=== PATIENT | male | born 1990 | race Caucasian/White ===

== ENCOUNTER 2019-04-21 20:56 | Outpatient (CLI) | payer SELFPAY | END 2019-04-21 20:57 | disposition EMS.NT | LOC: EMS 20:56 | PROVIDERS: ATTEND Surgery | DX: R09.89 Other specified symptoms and signs involving the circulatory and respiratory systems (principal); R20.0 Anesthesia of skin ==

== ENCOUNTER 2019-11-05 12:32 | Day surgery (SDC) | payer OTHER ==
[2019-11-05] MEDS ORDERED: LACTATED RINGERS 1,000 ML IV ONE (12:37)
[2019-11-05] MEDS ORDERED: BUPIVACAINE 0.25% PF 30 ML VIAL ONE (12:47)
--- NOTE | 2019-11-05 12:57 | ANESTHESIA ---
Pre-Anesthesia VS, & Labs - Diagnosis right hand puncture wound/dog bite - Procedure I and D right hand Vital Signs: Temp Pulse Resp BP Pulse Ox 36.9 C 79 16 145/83 H 100 11/05/19 12:51 11/05/19 12:51 11/05/19 12:51 11/05/19 12:51 11/05/19 12:51 Height 5 ft 4 in Weight (kg) 62.5 kg Home Medications and Allergies Home Medications: Ambulatory Orders No Known Home Medications 11/05/19 No Known Home Medications 11/05/19 Allergies/Adverse Reactions: Allergies Allergy/AdvReac Type Severity Reaction Status Date / Time No Known Drug Allergies Allergy Verified 11/05/19 12:54 Anes History & Medical History - Anesthetic History Anesthesia Complications: reports: No previous complications (") Family history of Anesthesia Complications: Denies Family history of Malignant Hyperthermia: Denies - Medical History Cardiovascular: reports: None Pulmonary: reports: None Gastrointestinal: reports: None Urinary: reports: None Neuro: reports: None Musculoskeletal: reports: None Endocrine/Autoimmune: reports: None Blood Disorders: reports: None Smoking Status: Never smoker Psychosocial: reports: Alcohol (rarely) - Surgical History Eyes Ears Nose Throat (EENT): Tonsil/Adenoidectomy Exam General: Alert, Oriented x3, Cooperative, No acute distress Dental: WNL Mouth Openin Fingerbreadth Neck Mobility: Normal Mallampati classification: II Thyromental Distance: 4-6 cm Respiratory: Lungs clear, Normal breath sounds, No respiratory distress, No accessory muscle use Cardiovascular: Regular rate, Normal S1, Normal S2, No murmurs Abdomen: Normal bowel sounds, Soft, No tenderness, No hepatospenomegaly, No masses Extremities: No clubbing, No cyanosis, No edema, Normal pulses, No tenderness/swelling Neurological: Normal gait, Normal speech, Strength at 5/5 X4 ext, Normal tone, Sensation intact, Cranial nerves 3-12 NL, Reflexes 2+ Mental/Cognitive Status: Alert/Oriented X3, Normal for patient Cognitive Status: Within normal limits Plan Anesthesia Type: MAC Regional Block: Per Surgeon's request for Post Op pain control Consent for Procedure(s) Verified and Reviewed: Yes Code Status: Attempt Resuscitation ASA classification: 1-Healthy patient Is this case an emergency?: No
[2019-11-05] MEDS ORDERED: CLINDAMYCIN 600 MG/50 ML 50 ML IV ONE (12:58)
[2019-11-05] MEDS ORDERED: cefTRIAXone 2 GM VIAL ONE (12:58)
[2019-11-05 13:19] LABS: BASOPHILS # (AUTO) 0.1 10^3/uL (0.0-0.1); BASOPHILS % (AUTO) 0.5 %; EOSINOPHILS % (AUTO) 0.1 %; HGB - HEMOGLOBIN 15.7 g/dL (14.0-18.0); LYMPHOCYTES # (AUTO) 1.1 10^3/uL (1.5-3.5); MEAN CORPUSCULAR HEMOGLOBIN 29.2 pg (27.0-31.0); MEAN CORPUSCULAR HGB CONC 34.1 g/dL (32.0-36.0); MEAN CORPUSCULAR VOLUME 85.8 fL (80.0-94.0); MEAN PLATELET VOLUME 10.6 fL (7.4-11.4); MONOCYTES # (AUTO) 0.5 10^3/uL (0.0-1.0); MONOCYTES % (AUTO) 5.7 %; NEUTROPHILS # (AUTO) 7.6 10^3/uL (1.5-6.6); NEUTROPHILS % (AUTO) 81.4 %; PLT - PLATELET COUNT 204 10^3/uL (130-450); RED BLOOD COUNT 5.37 10^6/uL (4.70-6.10); RED CELL DISTRIBUTION WIDTH 12.5 % (12.0-15.0); WHITE BLOOD COUNT 9.4 x10^3/uL (4.8-10.8)
[2019-11-05] MEDS ORDERED: GLYCOPYRROLATE 1 MG/5 ML VIAL IVP ONE (13:35)
[2019-11-05] MEDS ORDERED: MIDAZOLAM 2 MG/2 ML VIAL IVP ONE (13:35)
[2019-11-05] MEDS ORDERED: KETOROLAC 30 MG/ML VIAL IVP ONE (13:35)
[2019-11-05] MEDS ORDERED: PROPOFOL 200 MG/20 ML VIAL IVP ONE (13:35)
[2019-11-05] MEDS ORDERED: LIDOCAINE-MPF 2% 5 ML VIAL IM ONE (13:35)
[2019-11-05] MEDS ORDERED: fentaNYL 100 MCG/2 ML VIAL IVP ONE (13:35)
[2019-11-05] MEDS ORDERED: DEXAMETHASONE 4 MG/ML VIAL IVP ONE (13:35)
[2019-11-05] MEDS ORDERED: BUPIVACAINE 0.25% PF 30 ML VIAL SUBQ ONE (14:49)
[2019-11-05] MEDS ORDERED: oxyCODONE 5 MG TABLET PO PRN (15:06)
[2019-11-05] MEDS ORDERED: ONDANSETRON 4 MG/2 ML VIAL IVP PRN (15:06)
--- NOTE | 2019-11-05 15:32 | OPERATIVE REPORT ---
Operative Report - General Procedure Date: 11/05/19 - Procedure Note Anesthesia Technique: MAC, Regional block Estimated Blood Loss (mL): 25 - Other Other Information/Narrative: Date of Procedure: November 05, 2021 Planned Procedure: Right hand incision and drainage Pre-op diagnosis: Right hand dog bite, suspected septic arthritis right long finger MCP J Procedure performed: Right hand, long finger MCP joint incision and drainage Post-op diagnosis: Right hand dog bite, likely cellulitis, less likely septic arthritis Primary Surgeon: SILAS SANDERS Secondary Surgeon: Osmel Anesthesia: Regional with monitored anesthesia EBL: 25 ml Tourniquet: 14 minutes, right arm at 250mmHg. Specimen(s) Information: Wound track x1 tissue sent for aerobic, anaerobic, acid-fast and fungal cultures Superficial cultures x2 sent for aerobic and anaerobic culture Extensor tendon cultures x2 sent for aerobic and anaerobic culture Deep (joint) cultures x2 sent for aerobic and anaerobic culture Complication(s): None Condition: Stable to recovery Indications for Surgery: The patient is a 29-year-old right hand dominant male who sustained a right hand dog bite from his dog yesterday evening at approximately 7 PM. He did not present to the ED, but presented to sick call on the morning of the with increased pain, swelling and erythema around the lacerations centered over the right long finger MCP joint. Clinical examination demonstrated 2 small lacerations that had sealed, overlying the MCP joint. He was tender to palpation, with decreased range of motion at the MCP joint. X-ray did not demonstrate retained foreign body or fracture. Based on the location of the wounds, mechanism, and exam, concern existed for a presumed septic arthritis from a dog bite. He was counseled on treatment options with recommendation for open surgical irrigation and drainage with joint exploration. The dog was known to him, with no concern for rabies. His tetanus was updated this morning at sick call. Risks of surgery were discussed to include bleeding, infection, postoperative stiffness, implant complications, pin tract infections, loss of reduction, need for further procedures procedures, damage to nerves, vessels, tendons, ligaments, bone and cartilage and anesthesia complications to include medication side effects and allergic reactions and even . After discussion, he wished to proceed. Findings: Edematous subcutaneous tissue, overall inspection of the joint did not reveal any pus, the chondral surfaces were intact and normal. The wound tract on visual examination did not appear to track deeply. However, out of an abundance of caution, the extensor tendon was split longitudinally, the joint capsule was entered and the joint was thoroughly irrigated using normal saline. Descriptions of Procedure: The patient was met in the Preoperative Holding Area, at which time preoperative paperwork was confirmed. The right hand was signed, and the area of erythema was outlined. A regional block was placed by anesthesia, and then the patient was then brought to Main Operating Room, placed supine on the Operating Room table. Antibiotics were held until after cultures were obtained. Monitored anesthesia care was induced. The operative extremity was then prepped and draped over a hand table in the normal sterile fashion after a well-padded tourniquet was placed on the proximal arm. A final timeout was conducted to confirm the correct patient, correct extremity and correct procedure. The operative extremity was gravity exsanguinated for 2 minutes, and then exsanguinated from the wrist proximal using an Esmarch bandage and tourniquet inflated to 250mmHg. A approximately 4 cm longitudinal incision was marked out, with incorporation and ellipsing of the puncture wound tracts. Appropriate regional anesthesia was insured with Adson forceps and then the incision was sharply made using a 15 blade through the skin. The excised tissue was passed off the back table in a sterile container. Skin hooks were used to retract the tissue, and tenotomy scissors were used to gently spread down to the level superficial to the extensor tendon. The first set of cultures was taken. The final layer of tissue above the extensor mechanism was longitudinally divided, exposing the extensor mechanism second set of cultures was taken from this level. The extensor mechanism was then sharply divided longitudinally using a fresh blade to expose the underlying joint capsule and joint, this was entered sharply, with no purulence noted. The cartilage surfaces appeared healthy and normal. Deep cultures were taken from the joint. At this point a wet Ray-Dawit was placed over the incision, and the tourniquet was deflated. Hemostasis was obtained using bipolar electrocautery, and perioperative antibiotics were administered consisting of 2 g IV ceftriaxone, and 600 mg IV clindamycin. Ragnell retractors were placed inside the capsular incision, and low-pressure saline was used to copiously irrigate the joint. While irrigating, the joint was distracted manually and taken through a full range of motion from flexion to extension to ensure good penetration of the irrigant. Approximately 3 total liters were used. Following irrigation, the dirty instruments were passed to the side of the back table and we changed our gloves. Given the overall healthy appearance of the underlying joint, the extensor mechanism was loosely reapproximate using interrupted 4-0 Monocryl. The wound was again irrigated using approximately 1 more liter of fluid. Hemostasis was ensured, and the skin was gently reapproximated using a combination of simple and horizontal mattress 3-0 nylon sutures. Xeroform was placed over the incision, followed by 4 x 4 gauze and a well-padded volar resting splint. Anesthesia was reversed, and the patient was brought to the Post Anesthesia Care for further recovery. Postoperative Plan: 1. The patient will be discharged from the Same Day Surgery Unit when discharge criteria are met. 2. The patient will strictly elevate the forearm overnight, he will return to clinic tomorrow morning for a wound checkand conversion to a removable splint to facilitate 3 times daily dilute Betadine soaks. 3. Patient will start on Augmentin 875/125mg p.o. twice daily for minimum of 14 days starting this evening 4. Baseline labs were obtained prior to surgery, will follow culture results and tailor antibiotics appropriately as needed. 5. Strict return criteria for any spreading infectious symptoms, worsening pain or other concerning symptoms 6. Follow-up tomorrow at 0 800 in Ortho clinic.
[2019-11-05] MEDS ORDERED: oxyCODONE 5 MG TABLET ONE (15:38)
[2019-11-05 15:58] VITALS: BP 122/87
== END 2019-11-05 12:33 | disposition home or self-care (01) ==
LOC: SDS 12:32
PROVIDERS: ATTEND Orthopaedic Surgery
PROC: 0R9U0ZZ Drainage of Right Metacarpophalangeal Joint, Open Approach (ICD-10-PCS; principal; 2019-11-05 12:30)
DX: S61.451A Open bite of right hand, initial encounter (principal); L08.9 Local infection of the skin and subcutaneous tissue, unspecified; W54.0XXA Bitten by dog, initial encounter; Y99.8 Other external cause status; I10 Essential (primary) hypertension; F41.9 Anxiety disorder, unspecified; H53.002 Unspecified amblyopia, left eye; H52.00 Hypermetropia, unspecified eye
CPT/HCPCS: 36415; 81599; 85025; 85651; 86140; 87070; 87205

== ENCOUNTER 2019-12-13 15:06 | Emergency (ER) | payer OTHER ==
[2019-12-13 15:18] VITALS: BP 133/92
--- NOTE | 2019-12-13 18:00 | ED Physician Documentation ---
History of Present Illness - Stated complaint Stated Complaint: DIZZY,N/V,WEAK - Chief complaint Chief Complaint: General - History obtained from History obtained from: Patient (Last night inhaled some antifreeze and felt sick afterwards with nausea and dizziness. Now feels completely better but just wants a work note.) Review of Systems Constitutional: denies: Fever, Chills Throat: denies: Sore throat Cardiac: denies: Chest pain / pressure, Palpitations Respiratory: denies: Dyspnea, Cough PD PAST MEDICAL HISTORY - Past Medical History Cardiovascular: None Respiratory: None Neuro: None Endocrine/Autoimmune: None GI: None : None HEENT: None Psych: None Musculoskeletal: None - Past Surgical History HEENT: Tonsil/Adenoidectomy - Present Medications Home Medications: Ambulatory Orders Medication Instructions Recorded Confirmed Citalopram [CeleXA] 10 mg PO ONCE 12/13/19 12/13/19 - Allergies Allergies/Adverse Reactions: Allergies Allergy/AdvReac Type Severity Reaction Status Date / Time No Known Drug Allergies Allergy Verified 12/13/19 15:18 - Social History Smoking Status: Never smoker PD ED PE NORMAL - Vitals Vital signs reviewed: Yes - General General: Alert and oriented X 3, No acute distress - HEENT HEENT: PERRL, EOMI, Ears normal, Pharynx benign - Neck Neck: Supple, no meningeal sign, No bony TTP - Cardiac Cardiac: RRR, No murmur - Respiratory Respiratory: No respiratory distress, Clear bilaterally - Abdomen Abdomen: Non tender - Neuro Neuro: Alert and oriented X 3, Normal speech Results - Vitals Vitals: Vital Signs - 24 hr 12/13/19 15:14 Temperature 36.9 C Heart Rate 76 Respiratory 18 Rate Blood Pressure 133/92 H O2 Saturation 99 Oxygen O2 Source Room air PD MEDICAL DECISION MAKING - ED course ED course: I discussed doing screening blood work to evaluate for alcohol toxicity acidosis etc. which he did not want. He says he is completely back to normal and just needs a note excusing him from work this afternoon. Departure - Departure Disposition: 01 Home, Self Care Clinical Impression: Inhalation injury Condition: Good Record reviewed to determine appropriate education?: Yes Comments: Return if you develop recurrent symptoms or worsen in any way, Forms: Activity restrictions
== END 2019-12-13 18:08 | disposition home or self-care (01) ==
LOC: ED 15:06
DX: T51.1X1A Toxic effect of methanol, accidental (unintentional), initial encounter (principal); R11.0 Nausea; R42 Dizziness and giddiness
CPT/HCPCS: 80053; 83690; 85025; 99282; 99283

== ENCOUNTER 2020-12-07 16:40 | Outpatient (CLI) | payer OTHER | END 2020-12-07 16:41 | disposition left against medical advice (07) | LOC: EMS 16:40 | DX: M79.622 Pain in left upper arm (principal); R00.2 Palpitations ==

== ENCOUNTER 2021-05-29 21:21 | Outpatient (CLI) | payer OTHER | END 2021-05-29 21:22 | disposition EMS.NT | LOC: EMS 21:21 | DX: F41.9 Anxiety disorder, unspecified (principal) ==